=== PATIENT | male | born 1955 | race Caucasian/White ===

== ENCOUNTER 2021-07-05 08:30 | Outpatient (CLI) | payer MEDICARE | END 2021-07-05 23:59 | disposition home or self-care (01) | LOC: CARD DIAG 08:30 | PROVIDERS: ATTEND Nurse Practitioner | DX: I08.3 Combined rheumatic disorders of mitral, aortic and tricuspid valves (principal) | CPT/HCPCS: 93306 ==

== ENCOUNTER 2023-01-03 09:09 | Emergency (ER) | payer MEDICARE ==
[~2023-01-03] VITALS: Ht 180.3 cm; Wt 111.4 kg
[2023-01-03 10:07] VITALS: BP 159/72
== END 2023-01-03 11:15 | disposition home or self-care (01) ==
LOC: ER 09:09
DX: I83.91 Asymptomatic varicose veins of right lower extremity (principal)
CPT/HCPCS: 99283; A6446; A6449